=== PATIENT | male | born 1980 | race Two or more races ===

== ENCOUNTER 2019-10-24 00:17 | Inpatient (IN) | payer MEDICAID ==
[~2019-10-24] VITALS: Ht 165.1 cm; Wt 95.5 kg
[~2019-10-24 00:17] MED LIST: LACTULOSE20 GM/301 ORAL; XIFAXAN550 MG ORAL
--- NOTE | 2019-10-24 00:22 | Emergency Room Report ---
History of Present Illness General Chief Complaint: To Be Triaged Source: Patient Present Illness HPI This a 39-year-old male with a history of alcohol abuse and traumatic brain injury status post craniotomy. He also has a history of seizure because of that. He is supposed to be on Keppra. Patient presents with chief complaint of seizure activity. Witnessed by family. According to EMS to seizure lasting about few minutes at home. He also has a seizure witnessed by EMS. He received 5 mg Versed. Now is postictal and sleeping. No trauma. No fever chills but no nausea no vomiting. He was noncompliant with his medication but started back on again per EMS. They got this history from family. Allergies: Coded Allergies: No Known Allergies (Unverified , 10/24/19) UNABLE TO ASSESS (Unverified , 08/10/19) pt non-verbal COVID-19 Screening Contact w/high risk pt: No Recent Travel to affected area: No Experienced COVID-19 symptoms?: No COVID-19 Testing performed VISUAL EDUCATION DIRECTOR: No Patient History Past Medical History: see triage record, old chart reviewed Past Surgical History: other Pertinent Family History: none Social History: Reports: alcohol use Immunizations: other Reviewed Nursing Documentation: PMH: Agreed; PSxH: Agreed Nursing Documentation-PMH Hx Cardiac Problems: No Hx Hypertension: No Hx Pacemaker: No Hx Asthma: Yes Hx COPD: No Hx Diabetes: No Hx Cancer: No Hx Gastrointestinal Problems: No Hx Dialysis: No Hx Neurological Problems: Yes - left lateral head surgery. Hx Cerebrovascular Accident: No Hx Seizures: Yes Hx Memory Loss: Yes Hx Neurologic Surgery: Yes Review of Systems All Other Systems: limited - Secondary to postictal. Physical Exam Vital Signs Date Time Temp Pulse Resp B/P (MAP) Pulse Ox O2 Delivery O2 Flow Rate FiO2 10/24/19 00:10 99.0 86 18 124/78 (93) 99 Room Air Vitals normal Sp02 EP Interpretation: reviewed, normal General Appearance: well appearing, no apparent distress, other - Sleepy Head: normocephalic, atraumatic Eyes: bilateral eye PERRL, bilateral eye EOMI ENT: hearing grossly normal, normal pharynx Neck: full range of motion, supple, no meningismus Respiratory: chest non-tender, lungs clear, normal breath sounds Cardiovascular #1: regular rate, rhythm, no murmur Gastrointestinal: normal bowel sounds, non tender, no mass, no organomegaly, no bruit, non-distended Musculoskeletal: back normal, normal range of motion Psychiatric: mood/affect normal Medical Decision Making Diagnostic Impression: Primary Impression: Seizure disorder Additional Impressions: Acute metabolic encephalopathy UTI (urinary tract infection) Qualified Codes: N30.00 - Acute cystitis without hematuria ER Course This patient presents with seizure. He has prolonged postictal state. Still not back to baseline. Because of this will admit for further evaluation. CT is negative for acute process. Dose of Keppra given here. Rhythm Strip Diag. Results EP Interpretation: yes Rate: 88 Rhythm: NSR, no PVC's, no ectopy CT/MRI/US Diagnostic Results CT/MRI/US Diagnostic Results : Imaging Test Ordered: CT head Impression No acute process per radiologist Last Vital Signs Date Time Temp Pulse Resp B/P (MAP) Pulse Ox O2 Delivery O2 Flow Rate FiO2 10/24/19 00:10 99.0 86 18 124/78 (93) 99 Room Air Status: improved Disposition: ADMITTED INPATIENT Condition: Serious Gwyn Sal MD Oct 24, 2019 00:22
[2019-10-24] MEDS ORDERED: levETIRAcetam 1,000mg/NS100ml 100 ML IVPB ONE (00:30)
[2019-10-24 00:40] VITALS: BP 118/78
[2019-10-24 01:03] LABS: HEMATOCRIT 41.3 % (42.0-52.0); HEMOGLOBIN 13.7 G/DL (14.2-18.0); MEAN CORPUSCULAR VOLUME 92 FL (80-99); PLATELET COUNT 92 K/UL (150-450); RED CELL DISTRIBUTION WIDTH 13.3 % (11.6-14.8)
[2019-10-24 01:04] LABS: APPEARANCE,URINE SLIGHTLY CLOUDY; BILIRUBIN, URINE NEGATIVE (NEGATIVE); GLUCOSE, URINE (UA) NEGATIVE (NEGATIVE); KETONES,URINE NEGATIVE (NEGATIVE); LEUKOCYTE ESTERASE ,URINE 3+ (NEGATIVE); NITRITE,URINE NEGATIVE (NEGATIVE); PH,URINE 7 (4.5-8.0); PROTEIN,URINE 2+ (NEGATIVE); UROBILINOGEN,URINE 4 MG/DL (0.0-1.0)
[2019-10-24 01:09] LABS: COLOR,URINE YELLOW
[2019-10-24 01:20] LABS: AMMONIA 41 umol/L (11-32); ANION GAP 12 mmol/L (5-15); BLOOD UREA NITROGEN 5 mg/dL (7-18); CALCIUM 9.1 MG/DL (8.5-10.1); CARBON DIOXIDE 23 MMOL/L (21-32); CHLORIDE 111 MMOL/L (98-107); CREATININE 0.8 MG/DL (0.55-1.30); POTASSIUM 3.3 MMOL/L (3.5-5.1); SODIUM 146 MMOL/L (136-145)
[2019-10-24 01:30] LABS: ALANINE AMINOTRANSFERASE 27 U/L (12-78); ALBUMIN 2.8 G/DL (3.4-5.0); ALBUMIN/GLOBULIN RATIO 0.7 (1.0-2.7); ALKALINE PHOSPHATASE 149 U/L (46-116); ASPARTATE AMINO TRANSFERASE 37 U/L (15-37); BILIRUBIN,TOTAL 1.5 MG/DL (0.2-1.0)
[2019-10-24] MEDS ORDERED: cefTRIAXone 1 GM in NS 55 ML IVPB ONE (01:30)
[2019-10-24 01:31] LABS: BILIRUBIN,DIRECT 0.5 MG/DL (0.0-0.3)
[2019-10-24] MEDS ORDERED: KEPPRA750 MG ORAL (01:42)
[2019-10-24] MEDS ORDERED: LEVETIRACETAM500 MG ORAL (02:19)
--- NOTE | 2019-10-24 03:06 | Diagnostic Imaging Report ---
EXAM: CT Head Without Intravenous Contrast CLINICAL HISTORY: SZ TECHNIQUE: Axial computed tomography images of the head/brain without intravenous contrast. CTDI is 53 mGy and DLP is 1152 mGy-cm. One or more of the following dose reduction techniques were used: automated exposure control, adjustment of the mA and/or kV according to patient size, use of iterative reconstruction technique. COMPARISON: 08/11/2019 FINDINGS: Brain: No hemorrhage, herniation, or mass effect. Mild left-sided cerebral volume loss, unchanged. Ventricles: No hydrocephalus. Bones/joints: Left-sided craniotomy. Soft tissues: Unremarkable. Sinuses: Unremarkable. Mastoid air cells: Clear. IMPRESSION: No acute hemorrhage, hydrocephalus, or mass effect.
[2019-10-24] MEDS: Heparin 5000 units/ml inj SUBQ SCH ×2 (09:00→21:00)
[2019-10-24] MEDS: D5 1/2NS 1,000 ML IV SCH (09:15)
[2019-10-24] MEDS ORDERED: LORazepam Inj 2mg/ml 1ml IV PRN (09:15)
--- NOTE | 2019-10-24 09:45 | History and Physical Report ---
DATE OF ADMISSION: 10/24/2019 CHIEF COMPLAINT: Seizures. HISTORY OF PRESENT ILLNESS: The patient is an unfortunate 39-year-old male. He has a history of traumatic brain injury and seizures, presented with complaints of seizures. The patient is a poor historian. I have left several messages with family members and I have not heard back from them. He apparently has a history of seizure disorder. There is some question about as whether or not he was actually taking medications. On evaluation in the emergency room, he received a dose of IV Keppra. Head CT was unremarkable. In light of the seizures, he is now admitted for further evaluation and care. PAST MEDICAL HISTORY: As above. PAST SURGICAL HISTORY: Includes craniotomy. CURRENT MEDICATIONS: Unknown. FAMILY HISTORY: Noncontributory. SOCIAL HISTORY: There is no known history of tobacco, ethanol, or drugs. REVIEW OF SYSTEMS: Unobtainable as the patient is confused. PHYSICAL EXAMINATION: VITAL SIGNS: Temperature 99, pulse 85, respirations 17, blood pressure 118/78. GENERAL: The patient is a well-developed male. HEENT: He has evidence of old craniotomy. NECK: Supple. HEART: Regular rate and rhythm. LUNGS: Clear. ABDOMEN: Soft, nontender, and nondistended. EXTREMITIES: Without clubbing, cyanosis, or edema. The patient moves all four extremities. LABORATORY DATA: UA showed too numerous to count wbc's. White count was 8, hemoglobin 13. Sodium 146, potassium 3.3. Total bilirubin 1.5. Ammonia level 41. ASSESSMENT: This is a 39-year-old male with a history of traumatic brain injury and craniotomy, admitted with complaints of seizures and UTI. PLAN: 1. IV antibiotics. 2. Continue Keppra. 3. Monitor for seizures. 4. DVT and stress ulcer prophylaxes. 5. Replace potassium. Edmund Ahn M.D. DR: KASSIE JOB#: [id number] CC:
[2019-10-24] MEDS: Lactulose 20gm/30ml UDC ORAL SCH ×2 (10:55→17:27)
[2019-10-24 12:00] VITALS: BP 112/67
[2019-10-24] MEDS: Piperacillin/Tazobactam 3.375 GM in NS 110 ML IVPB SCH ×2 (12:31→17:27)
[2019-10-24 16:00] VITALS: BP 102/64
[2019-10-24 20:00] VITALS: BP 125/71
[2019-10-25] VITALS: BP 122/71
[2019-10-25] MEDS: D5 1/2NS 1,000 ML IV SCH ×2 (00:07→11:55)
[2019-10-25] MEDS: Piperacillin/Tazobactam 3.375 GM in NS 110 ML IVPB SCH ×3 (03:52→17:40)
[2019-10-25 04:00] VITALS: BP 120/66
--- NOTE | 2019-10-25 07:53 | General Progress Note ---
Assessment/Plan Problem List: (1) UTI (urinary tract infection) ICD Codes: N39.0 - Urinary tract infection, site not specified SNOMED: 40796614, 555793435 Qualifiers: Qualified Codes: N30.00 - Acute cystitis without hematuria (2) Seizure disorder ICD Codes: G40.909 - Epilepsy, unspecified, not intractable, without status epilepticus SNOMED: 211633430 (3) Acute metabolic encephalopathy ICD Codes: G93.41 - Metabolic encephalopathy SNOMED: 93553701, 476852672 Status: stable, progressing Assessment/Plan: stable cont ivf antiemetics as needed follow up cultures iv abx sz rx Subjective ROS Limited/Unobtainable: No Constitutional: Reports: malaise, weakness HEENT: Reports: no symptoms Cardiovascular: Reports: no symptoms Respiratory: Reports: no symptoms Gastrointestinal/Abdominal: Reports: vomiting Genitourinary: Reports: no symptoms Neurologic/Psychiatric: Reports: pre-existing deficit, seizure Endocrine: Reports: no symptoms Hematologic/Lymphatic: Reports: no symptoms Allergies: Coded Allergies: No Known Allergies (Unverified , 10/24/19) UNABLE TO ASSESS (Unverified , 08/10/19) pt non-verbal All Systems: reviewed and negative except above Subjective vomited x 1. on ivf. on iv abx. Ucx with GPC. no szs. Objective Last 24 Hour Vital Signs Date Time Temp Pulse Resp B/P (MAP) Pulse Ox O2 Delivery O2 Flow Rate FiO2 10/25/19 04:15 71 10/25/19 04:00 98.2 64 17 120/66 (84) 97 10/25/19 00:00 75 10/25/19 00:00 98.1 68 16 122/71 (88) 97 10/24/19 21:00 Room Air 10/24/19 20:00 98.1 72 18 125/71 (89) 97 10/24/19 19:45 85 10/24/19 16:00 77 10/24/19 16:00 98.1 74 18 102/64 (77) 99 10/24/19 12:00 66 10/24/19 12:00 Room Air 10/24/19 12:00 99.0 68 18 112/67 (82) 96 10/24/19 11:33 Room Air Intake and Output 10/24/19 10/25/19 18:59 06:59 Intake Total 350 ml 480 ml Output Total 250 ml 1850 ml Balance 100 ml -1370 ml Intake Oral 350 ml 480 ml Output Urine Total 250 ml 1650 ml Emesis 200 ml # Voids 3 Height (Feet): 5 Height (Inches): 5.00 Weight (Pounds): 190 General Appearance: WD/WN, alert, confused Neck: supple Cardiovascular: normal rate, regular rhythm Respiratory/Chest: chest wall non-tender, lungs clear, normal breath sounds Abdomen: normal bowel sounds, non tender, soft, no organomegaly Edema: no edema noted Arm (L), no edema noted Arm (R) Neurologic: disoriented Edmund Ahn MD Oct 25, 2019 07:53
[2019-10-25 08:00] VITALS: BP 109/60
[2019-10-25] MEDS: Heparin 5000 units/ml inj SUBQ SCH ×2 (09:00→21:00)
[2019-10-25] MEDS: Lactulose 20gm/30ml UDC ORAL SCH ×2 (09:47→17:56)
[2019-10-25 12:00] VITALS: BP 114/64
[2019-10-25 16:00] VITALS: BP 143/61
[2019-10-25 20:00] VITALS: BP 128/76
[2019-10-26] VITALS: BP 125/67
[2019-10-26] MEDS: D5 1/2NS 1,000 ML IV SCH ×2 (02:09→14:13)
[2019-10-26] MEDS: Piperacillin/Tazobactam 3.375 GM in NS 110 ML IVPB SCH (02:10)
[2019-10-26 04:00] VITALS: BP 127/64
[2019-10-26 08:00] VITALS: BP 120/72
[2019-10-26] MEDS: Heparin 5000 units/ml inj SUBQ SCH ×2 (09:00→21:00)
--- NOTE | 2019-10-26 09:17 | General Progress Note ---
Assessment/Plan Problem List: (1) UTI (urinary tract infection) ICD Codes: N39.0 - Urinary tract infection, site not specified SNOMED: 91737454, 287205180 Qualifiers: Qualified Codes: N30.00 - Acute cystitis without hematuria (2) Seizure disorder ICD Codes: G40.909 - Epilepsy, unspecified, not intractable, without status epilepticus SNOMED: 811408310 (3) Acute metabolic encephalopathy ICD Codes: G93.41 - Metabolic encephalopathy SNOMED: 25614497, 610353916 Status: stable, progressing Assessment/Plan: stable dc ivf antiemetics as needed follow up cultures iv abx adjusted sz rx increased Subjective ROS Limited/Unobtainable: No Constitutional: Reports: no symptoms HEENT: Reports: no symptoms Cardiovascular: Reports: no symptoms Respiratory: Reports: no symptoms Gastrointestinal/Abdominal: Reports: no symptoms Genitourinary: Reports: no symptoms Neurologic/Psychiatric: Reports: seizure Endocrine: Reports: no symptoms Hematologic/Lymphatic: Reports: no symptoms Allergies: Coded Allergies: No Known Allergies (Unverified , 10/24/19) UNABLE TO ASSESS (Unverified , 08/10/19) pt non-verbal All Systems: reviewed and negative except above Subjective Had seizure last night. None this morning. UA with MRSA. No more vomiting. Objective Last 24 Hour Vital Signs Date Time Temp Pulse Resp B/P (MAP) Pulse Ox O2 Delivery O2 Flow Rate FiO2 10/26/19 08:00 97.9 76 18 120/72 (88) 98 10/26/19 04:00 74 10/26/19 04:00 98.5 72 17 127/64 (85) 97 10/26/19 00:00 76 10/26/19 00:00 98.7 69 16 125/67 (86) 97 10/25/19 21:00 Room Air 10/25/19 20:00 99.9 78 17 128/76 (93) 97 10/25/19 20:00 73 10/25/19 16:00 98.8 71 20 143/61 (88) 99 10/25/19 16:00 78 10/25/19 12:00 78 10/25/19 12:00 97.8 71 18 114/64 (81) 99 Intake and Output 10/25/19 10/26/19 19:00 07:00 Intake Total 2610 ml 340 ml Output Total 4050 ml 850 ml Balance -1440 ml -510 ml Intake Oral 2610 ml 340 ml Output Urine Total 4050 ml 850 ml # Voids 4 4 Height (Feet): 5 Height (Inches): 5.00 Weight (Pounds): 190 Objective General Appearance: WD/WN, alert, confused Neck: supple Cardiovascular: normal rate, regular rhythm Respiratory/Chest: chest wall non-tender, lungs clear, normal breath sounds Abdomen: normal bowel sounds, non tender, soft, no organomegaly Edema: no edema noted Arm (L), no edema noted Arm (R) Neurologic: disoriented Edmund Ahn MD Oct 26, 2019 09:17
[2019-10-26] MEDS: Lactulose 20gm/30ml UDC ORAL SCH ×2 (09:23→17:49)
[2019-10-26 09:55] LABS: HEMATOCRIT 38.3 % (42.0-52.0); HEMOGLOBIN 13.2 G/DL (14.2-18.0); MEAN CORPUSCULAR VOLUME 90 FL (80-99); PLATELET COUNT 72 K/UL (150-450); RED BLOOD COUNT 4.28 M/UL (4.70-6.10); RED CELL DISTRIBUTION WIDTH 13.1 % (11.6-14.8); WHITE BLOOD COUNT 5.6 K/UL (4.8-10.8)
[2019-10-26 10:16] LABS: ALANINE AMINOTRANSFERASE 24 U/L (12-78); ALBUMIN 2.6 G/DL (3.4-5.0); ALBUMIN/GLOBULIN RATIO 0.7 (1.0-2.7); ALKALINE PHOSPHATASE 103 U/L (46-116); ANION GAP 7 mmol/L (5-15); ASPARTATE AMINO TRANSFERASE 38 U/L (15-37); BLOOD UREA NITROGEN 4 mg/dL (7-18); CALCIUM 8.1 MG/DL (8.5-10.1); CARBON DIOXIDE 25 MMOL/L (21-32); CHLORIDE 109 MMOL/L (98-107); CREATININE 0.8 MG/DL (0.55-1.30); POTASSIUM 3.2 MMOL/L (3.5-5.1); SODIUM 141 MMOL/L (136-145)
[2019-10-26 10:20] LABS: BILIRUBIN,DIRECT 0.6 MG/DL (0.0-0.3)
[2019-10-26] MEDS ORDERED: Vancomycin 1.25gm/NS Premix IVPB SCH (10:30)
[2019-10-26 12:00] VITALS: BP 104/65
[2019-10-26] MEDS: Vancomycin 1.25gm/NS Premix IVPB SCH ×2 (14:13→22:30)
[2019-10-26 16:00] VITALS: BP 109/69
[2019-10-26 20:00] VITALS: BP 120/79
[2019-10-27] VITALS: BP 125/76
[2019-10-27 04:00] VITALS: BP 122/76
[2019-10-27] MEDS: D5 1/2NS 1,000 ML IV SCH ×2 (04:19→16:29)
[2019-10-27] MEDS: Vancomycin 1.25gm/NS Premix IVPB SCH ×3 (06:49→21:47)
[2019-10-27 08:00] VITALS: BP 127/79
[2019-10-27] MEDS: Lactulose 20gm/30ml UDC ORAL SCH ×2 (08:44→17:06)
[2019-10-27] MEDS: Heparin 5000 units/ml inj SUBQ SCH ×2 (08:48→21:00)
[2019-10-27 11:40] VITALS: BP 127/88
[2019-10-27] MEDS ORDERED: BACTRIM DS TAB1 EAC1 ORAL (13:34)
[2019-10-27 13:54] LABS: ALANINE AMINOTRANSFERASE 24 U/L (12-78); ALBUMIN 2.6 G/DL (3.4-5.0); ALBUMIN/GLOBULIN RATIO 0.6 (1.0-2.7); ALKALINE PHOSPHATASE 119 U/L (46-116); ANION GAP 9 mmol/L (5-15); ASPARTATE AMINO TRANSFERASE 40 U/L (15-37); BILIRUBIN,TOTAL 1.9 MG/DL (0.2-1.0); BLOOD UREA NITROGEN 4 mg/dL (7-18); CALCIUM 8.6 MG/DL (8.5-10.1); CARBON DIOXIDE 23 MMOL/L (21-32); CHLORIDE 108 MMOL/L (98-107); CREATININE 0.9 MG/DL (0.55-1.30); POTASSIUM 3.9 MMOL/L (3.5-5.1); SODIUM 140 MMOL/L (136-145)
[2019-10-27 13:56] LABS: BILIRUBIN,DIRECT 0.7 MG/DL (0.0-0.3)
[2019-10-27 16:00] VITALS: BP 121/74
[2019-10-27 20:00] VITALS: BP 115/50
[2019-10-28] VITALS: BP 128/85
[2019-10-28 04:00] VITALS: BP 132/57
[2019-10-28] MEDS: Vancomycin 1.25gm/NS Premix IVPB SCH (06:50)
[2019-10-28] MEDS: D5 1/2NS 1,000 ML IV SCH (06:54)
[2019-10-28 08:00] VITALS: BP 117/67
[2019-10-28] MEDS: Lactulose 20gm/30ml UDC ORAL SCH (08:06)
[2019-10-28] MEDS: Heparin 5000 units/ml inj SUBQ SCH (08:07)
[2019-10-28 12:00] VITALS: BP 116/64
--- NOTE | 2019-10-28 18:14 | Discharge Summary ---
DATE OF ADMISSION: 10/24/2019 DATE OF DISCHARGE: 10/28/2019 ADMISSION DIAGNOSES: 1. Seizures. 2. Urinary tract infection. 3. MRSA urinary tract infection. 4. History of traumatic brain injury. 5. Cirrhosis. DISCHARGE DIAGNOSES: 1. Seizures. 2. Urinary tract infection. 3. MRSA urinary tract infection. 4. History of traumatic brain injury. 5. Cirrhosis. HOSPITAL COURSE: The patient was admitted complaints of seizures. He was noted to have a UTI. His seizure medication regimen was adjusted. He had a MRSA UTI that was pansensitive. On discharge, he was seizure-free, tolerating p.o.'s. He will be discharged home and he was asked to follow up with his regular PMD. DISCHARGE MEDICATIONS: Please see discharge medication list for discharge medications. DIET: Regular. ACTIVITY: Ad-cierra. Edmund Ahn M.D. DR: DOUG JOB#: [id number] CC:
== END 2019-10-28 15:40 | disposition home or self-care (01) | DRG 53 ==
LOC: EDBD 00:17 → EMR 00:43 → EDBEDREQ 08:16 → 2E 08:35
DX: G40.909 Epilepsy, unspecified, not intractable, without status epilepticus (principal); G93.41 Metabolic encephalopathy; N39.0 Urinary tract infection, site not specified; B95.62 Methicillin resistant Staphylococcus aureus infection as the cause of diseases classified elsewhere; Z87.820 Personal history of traumatic brain injury; K74.60 Unspecified cirrhosis of liver
CPT/HCPCS: 36415; 70450; 80053; 80202; 80307; 81003; 82140; 82248; 83690; 85007; 85025; 87086; 87181; 96365; 96375; 99285; G0480; J8499; U0002